=== PATIENT | female | born 1965 | race Caucasian/White ===

== ENCOUNTER 2022-12-06 22:15 | Observation (INO) | payer OTHER ==
[2022-12-06] MEDS ORDERED: Pepcid 20 MG VIAL IV ONE ×2 (22:33→23:02)
[2022-12-06] MEDS ORDERED: Zofran 4 MG/2 ML VIAL IV ONE ×2 (22:33→23:01)
[2022-12-06] MEDS ORDERED: PROTONIX 40 MG IV IV ONE ×2 (22:33→23:02)
--- NOTE | 2022-12-06 22:33 | ERPHSYRPT ---
- History of Present Illness Time Seen by Provider: 12/06/22 22:32 Historian: patient, family Exam Limitations: no limitations Physician History: pt was having cardiac work up when Covid hit and never got to complete this. Now having chest pain and came to hospital. some nausea. no vomiting. left sided chest pain - no known cardiac conditions yet. Independent HX from pt and family. nonsmoker, no hx blood clots . no cardiac procedures. Chest clear, Ht reg without M. EKG poor r wave progression. Ordered EKG, Trops, D dimer, abd labs, CBC , CXR, and CMP , reviewed and discussed with pt and family to guide follow-up. Timing/Duration: today Activities at Onset: none Location: substernal Chest Pain Radiation: arm Severity of Pain-Max: moderate Severity of Pain-Current: moderate Modifying Factors: Improves With: nothing Associated Symptoms: nausea, heartburn Nitro Today/Relief: 0.4 mg x 1, provided by ED, complete relief (but returned) Aspirin Treatment Today: 325 mg x 1, provided at home Allergies/Adverse Reactions: Sulfa (Sulfonamide Antibiotics) Allergy (Mild, Verified 12/06/22 22:17) Hives Home Medications: Bisoprolol/Hydrochlorothiazide [Bisoprolol-Hctz 10-6.25 mg Tab] 1 tab PO DAILY 12/06/22 [History] - Review of Systems Constitutional: No Fever, No Chills Eyes: No Symptoms Ears, Nose, & Throat: No Symptoms Respiratory: No Cough, No Dyspnea Cardiac: Chest Pain, No Edema, No Syncope Abdominal/Gastrointestinal: Nausea, No Abdominal Pain, No Vomiting, No Diarrhea Genitourinary Symptoms: No Dysuria Musculoskeletal: No Back Pain, No Neck Pain Skin: No Rash Neurological: No Dizziness, No Focal Weakness, No Sensory Changes Psychological: No Symptoms Endocrine: No Symptoms Hematologic/Lymphatic: No Symptoms Immunological/Allergic: No Symptoms All Other Systems: Reviewed and Negative - Past Medical History Pertinent Past Medical History: Yes Cardiac History: Hypertension Respiratory History: No Pertinent History Endocrine Medical History: No Pertinent History Musculoskeletal History: Arthritis - Nursing Vital Signs Nursing Vital Signs: Initial Vital Signs Temperature 98.1 F 12/06/22 22:18 Pulse Rate 71 12/06/22 22:18 Respiratory Rate 18 12/06/22 22:18 Blood Pressure 138/115 12/06/22 22:18 O2 Sat by Pulse Oximetry 99 12/06/22 22:18 Pain Scale Pain Intensity 3 - Physical Exam General Appearance: no apparent distress, alert Eye Exam: PERRL/EOMI, eyes nml inspection Ears, Nose, Throat Exam: normal ENT inspection, moist mucous membranes Neck Exam: normal inspection, non-tender, supple, full range of motion Respiratory Exam: normal breath sounds, lungs clear, No respiratory distress Cardiovascular Exam: regular rate/rhythm, normal heart sounds Gastrointestinal/Abdomen Exam: soft, No tenderness, No mass Pelvic Exam: deferred Rectal Exam: deferred Back Exam: normal inspection, No CVA tenderness, No vertebral tenderness Extremity Exam: normal inspection, normal range of motion Neurologic Exam: alert, oriented x 3, cooperative, normal mood/affect, sensation nml, No motor deficits Skin Exam: normal color, warm, dry SpO2 Interpretation: normal SpO2: 99 O2 Delivery: Room Air - Course Nursing assessment & vital signs reviewed: Yes EKG Interpreted by Me: Sinus Rhythm, NORMAL AXIS, NORMAL INTERVALS, Non-specific ST Changes, Other (poor r wave progression) - Radiology Exams Chest X-ray Interpretation: Reviewed by me, No Infiltrates, Other (granulomas no major infiltrates. ) Ordered Tests: Active Orders 24 hr Category Date Time Status EKG-ER Only STAT Care 12/06/22 22:33 Active IV Insertion STAT Care 12/06/22 22:33 Active Telemetry q4h Care 12/07/22 00:57 Active CHEST 1 VIEW (PORTABLE) Stat Exams 12/06/22 22:34 Taken AMYLASE Stat Lab 12/06/22 22:43 Completed CBC W DIFF Stat Lab 12/06/22 22:43 Completed CMP Stat Lab 12/06/22 22:43 Completed CULTURE,URINE Stat Lab 12/07/22 00:19 Received D-DIMER QUANTITATIVE Stat Lab 12/06/22 22:43 Completed HCG QUALITATIVE,SERUM Stat Lab 12/06/22 22:43 Completed LIPASE Stat Lab 12/06/22 22:43 Completed Lactic Acid Stat Lab 12/06/22 22:50 Completed TROPONIN Q4H Lab 12/06/22 22:43 Completed TROPONIN Q4H Lab 12/07/22 02:45 Ordered TROPONIN Q4H Lab 12/07/22 06:45 Ordered UA W/RFX UR CULTURE Stat Lab 12/07/22 00:19 Completed Medication Summary Generic Name Dose Route Start Last Admin Trade Name Freq PRN Reason Stop Dose Admin Sodium Chloride 1,000 mls @ 100 mls/hr 12/06/22 22:45 12/06/22 22:41 Sodium Chloride 0.9% 1000 Ml IV 01/05/23 22:44 100 mls/hr .Q10H JOVANY Administration Potassium Chloride 20 meq in 100 mls @ 50 mls/hr 12/07/22 00:57 12/07/22 01:02 Potassium Chloride 20 Meq In Water 100ml IV 12/07/22 02:56 50 mls/hr STAT ONE Administration Discontinued Medications Generic Name Dose Route Start Last Admin Trade Name Liana PRN Reason Stop Dose Admin Famotidine 20 mg 12/06/22 22:33 12/06/22 23:04 Famotidine 20 Mg/1 Vial IV 12/06/22 22:34 20 mg STAT ONE Administration Famotidine Confirm 12/06/22 23:02 Famotidine 20 Mg/1 Vial Administered 12/06/22 23:03 Dose 20 mg IV .STK-MED ONE Potassium Chloride Confirm 12/07/22 01:02 Potassium Chloride 20 Meq In Water 100ml Administered 12/07/22 01:03 Dose 100 mls @ ud IV .STK-MED ONE Nitroglycerin Confirm 12/06/22 23:10 Nitroglycerin 0.4 Mg (Ed) 0.4 Mg Tab.Subl Administered 12/06/22 23:11 Dose 0.4 mg SL .STK-MED ONE Nitroglycerin 0.4 mg 12/06/22 23:12 12/06/22 23:16 Nitroglycerin 0.4 Mg (Ed) 0.4 Mg Tab.Subl SL 12/06/22 23:13 0.4 mg STAT ONE Administration Ondansetron HCl 4 mg 12/06/22 22:33 12/06/22 22:42 Ondansetron Hcl 4 Mg/2 Ml Vial IV 12/06/22 22:34 4 mg STAT ONE Administration Ondansetron HCl Confirm 12/06/22 22:39 Ondansetron Hcl 4 Mg/2 Ml Vial Administered 12/06/22 22:40 Dose 4 mg .ROUTE .STK-MED ONE Ondansetron HCl 4 mg 12/06/22 23:01 12/06/22 23:04 Ondansetron Hcl 4 Mg/2 Ml Vial IV 12/06/22 23:02 4 mg STAT ONE Administration Ondansetron HCl Confirm 12/06/22 23:02 Ondansetron Hcl 4 Mg/2 Ml Vial Administered 12/06/22 23:03 Dose 4 mg .ROUTE .STK-MED ONE Pantoprazole Sodium 40 mg 12/06/22 22:33 12/06/22 23:04 Pantoprazole 40 Mg Vial IV 12/06/22 22:34 40 mg STAT ONE Administration Pantoprazole Sodium Confirm 12/06/22 23:02 Pantoprazole 40 Mg Vial Administered 12/06/22 23:03 Dose 40 mg IV .STK-MED ONE Potassium Bicarbonate 25 meq 12/07/22 00:56 12/07/22 01:02 Potassium Bicarbonate 25 Meq Tab PO 12/07/22 00:57 25 meq STAT ONE Administration Potassium Bicarbonate Confirm 12/07/22 01:01 Potassium Bicarbonate 25 Meq Tab Administered 12/07/22 01:02 Dose 25 meq .ROUTE .STK-MED ONE Lab/Rad Data: Laboratory Result Diagrams 12/06/22 22:43 12/06/22 22:43 Laboratory Results 12/07/22 12/06/22 12/06/22 Range/Units 00:19 22:50 22:43 WBC (4.0-10.5) x10^3/uL RBC (4.1-5.4) x10^6/uL Hgb (12.0-16.0) g/dL Hct (35-47) % MCV (78-100) fL MCH (26-32) pg MCHC (32-36) g/dL RDW (11.5-14.0) % Plt Count (150-450) x10^3/uL MPV (7.5-11.0) fL Gran % (36.0-66.0) % Immature Gran % (Auto) (0.00-0.4) % Nucleat RBC Rel Count (0.00-0.1) % Eos # (Auto) (0-0.5) x10^3/uL Immature Gran # (Auto) (0.00-0.03) x10^3u/L Absolute Lymphs (auto) (1.0-4.6) x10^3/uL Absolute Monos (auto) (0.0-1.3) x10^3/uL Absolute Nucleated RBC (0.00-0.01) x10^3u/L Lymphocytes % (24.0-44.0) % Monocytes % (0.0-12.0) % Eosinophils % (0.00-5.0) % Basophils % (0.0-0.4) % Absolute Granulocytes (1.4-6.9) x10^3/uL Basophils # (0-0.4) x10^3/uL D-Dimer < 0.19 (0.0-0.50) mg/L Sodium (137-145) mmol/L Potassium (3.5-5.1) mmol/L Chloride (98-107) mmol/L Carbon Dioxide (22-30) mmol/L Anion Gap (5-15) MEQ/L BUN (7-17) mg/dL Creatinine (0.52-1.04) mg/dL Estimated GFR ML/MIN Glucose (74-106) mg/dL Lactic Acid 1.5 (0.4-2.0) Calcium (8.4-10.2) mg/dL Total Bilirubin (0.2-1.3) mg/dL AST (14-36) U/L ALT (0-35) U/L Alkaline Phosphatase (38-126) U/L Troponin I (0.000-0.034) ng/mL Serum Total Protein (6.3-8.2) g/dL Albumin (3.5-5.0) g/dL Amylase (30-110) U/L Lipase (23-300) U/L Serum , Qual (Negative) Urine Color Yellow (Yellow) Urine Appearance Clear (Clear) Urine pH 7.0 (4.6-8.0) Ur Specific [place] <=1.005 (1.005-1.030) Urine Protein Negative (Negative) Urine Glucose (UA) Negative (Negative) mg/dL Urine Ketones Negative (Negative) Urine Blood Negative (Negative) Urine Nitrite Negative (Negative) Urine Bilirubin Negative (Negative) Urine Urobilinogen 0.2 (0.2) mg/dL Ur Leukocyte Esterase Moderate A (Negative) U Hyaline Cast (Auto) NONE SEEN (0-2) /LPF Urine Microscopic RBC 0-2 (0-5) /HPF Urine Microscopic WBC 11-20 A (0-5) /HPF Ur Epithelial Cells None Seen (None Seen) /HPF Urine Bacteria None Seen (None Seen) /HPF Urine Culture Reflexed YES (NO) 12/06/22 12/06/22 12/06/22 Range/Units 22:43 22:43 22:43 WBC (4.0-10.5) x10^3/uL RBC (4.1-5.4) x10^6/uL Hgb (12.0-16.0) g/dL Hct (35-47) % MCV (78-100) fL MCH (26-32) pg MCHC (32-36) g/dL RDW (11.5-14.0) % Plt Count (150-450) x10^3/uL MPV (7.5-11.0) fL Gran % (36.0-66.0) % Immature Gran % (Auto) (0.00-0.4) % Nucleat RBC Rel Count (0.00-0.1) % Eos # (Auto) (0-0.5) x10^3/uL Immature Gran # (Auto) (0.00-0.03) x10^3u/L Absolute Lymphs (auto) (1.0-4.6) x10^3/uL Absolute Monos (auto) (0.0-1.3) x10^3/uL Absolute Nucleated RBC (0.00-0.01) x10^3u/L Lymphocytes % (24.0-44.0) % Monocytes % (0.0-12.0) % Eosinophils % (0.00-5.0) % Basophils % (0.0-0.4) % Absolute Granulocytes (1.4-6.9) x10^3/uL Basophils # (0-0.4) x10^3/uL D-Dimer (0.0-0.50) mg/L Sodium 138 (137-145) mmol/L Potassium 3.2 L (3.5-5.1) mmol/L Chloride 103 (98-107) mmol/L Carbon Dioxide 29 (22-30) mmol/L Anion Gap 8.8 (5-15) MEQ/L BUN 10 (7-17) mg/dL Creatinine 0.77 (0.52-1.04) mg/dL Estimated GFR > 60.0 ML/MIN Glucose 93 (74-106) mg/dL Lactic Acid (0.4-2.0) Calcium 9.5 (8.4-10.2) mg/dL Total Bilirubin 0.50 (0.2-1.3) mg/dL AST 35 (14-36) U/L ALT 34 (0-35) U/L Alkaline Phosphatase 87 (38-126) U/L Troponin I < 0.012 (0.000-0.034) ng/mL Serum Total Protein 7.2 (6.3-8.2) g/dL Albumin 4.4 (3.5-5.0) g/dL Amylase 105 (30-110) U/L Lipase 117 (23-300) U/L Serum , Qual NEGATIVE (Negative) Urine Color (Yellow) Urine Appearance (Clear) Urine pH (4.6-8.0) Ur Specific [place] (1.005-1.030) Urine Protein (Negative) Urine Glucose (UA) (Negative) mg/dL Urine Ketones (Negative) Urine Blood (Negative) Urine Nitrite (Negative) Urine Bilirubin (Negative) Urine Urobilinogen (0.2) mg/dL Ur Leukocyte Esterase (Negative) U Hyaline Cast (Auto) (0-2) /LPF Urine Microscopic RBC (0-5) /HPF Urine Microscopic WBC (0-5) /HPF Ur Epithelial Cells (None Seen) /HPF Urine Bacteria (None Seen) /HPF Urine Culture Reflexed (NO) 12/06/22 Range/Units 22:43 WBC 5.6 (4.0-10.5) x10^3/uL RBC 4.31 (4.1-5.4) x10^6/uL Hgb 13.1 (12.0-16.0) g/dL Hct 39.6 (35-47) % MCV 91.9 (78-100) fL MCH 30.4 (26-32) pg MCHC 33.1 (32-36) g/dL RDW 12.6 (11.5-14.0) % Plt Count 188 (150-450) x10^3/uL MPV 11.3 H (7.5-11.0) fL Gran % 50.4 (36.0-66.0) % Immature Gran % (Auto) 0.2 (0.00-0.4) % Nucleat RBC Rel Count 0.0 (0.00-0.1) % Eos # (Auto) 0.07 (0-0.5) x10^3/uL Immature Gran # (Auto) 0.01 (0.00-0.03) x10^3u/L Absolute Lymphs (auto) 2.26 (1.0-4.6) x10^3/uL Absolute Monos (auto) 0.43 (0.0-1.3) x10^3/uL Absolute Nucleated RBC 0.00 (0.00-0.01) x10^3u/L Lymphocytes % 40.1 (24.0-44.0) % Monocytes % 7.6 (0.0-12.0) % Eosinophils % 1.2 (0.00-5.0) % Basophils % 0.5 (0.0-0.4) % Absolute Granulocytes 2.83 (1.4-6.9) x10^3/uL Basophils # 0.03 (0-0.4) x10^3/uL D-Dimer (0.0-0.50) mg/L Sodium (137-145) mmol/L Potassium (3.5-5.1) mmol/L Chloride (98-107) mmol/L Carbon Dioxide (22-30) mmol/L Anion Gap (5-15) MEQ/L BUN (7-17) mg/dL Creatinine (0.52-1.04) mg/dL Estimated GFR ML/MIN Glucose (74-106) mg/dL Lactic Acid (0.4-2.0) Calcium (8.4-10.2) mg/dL Total Bilirubin (0.2-1.3) mg/dL AST (14-36) U/L ALT (0-35) U/L Alkaline Phosphatase (38-126) U/L Troponin I (0.000-0.034) ng/mL Serum Total Protein (6.3-8.2) g/dL Albumin (3.5-5.0) g/dL Amylase (30-110) U/L Lipase (23-300) U/L Serum , Qual (Negative) Urine Color (Yellow) Urine Appearance (Clear) Urine pH (4.6-8.0) Ur Specific [place] (1.005-1.030) Urine Protein (Negative) Urine Glucose (UA) (Negative) mg/dL Urine Ketones (Negative) Urine Blood (Negative) Urine Nitrite (Negative) Urine Bilirubin (Negative) Urine Urobilinogen (0.2) mg/dL Ur Leukocyte Esterase (Negative) U Hyaline Cast (Auto) (0-2) /LPF Urine Microscopic RBC (0-5) /HPF Urine Microscopic WBC (0-5) /HPF Ur Epithelial Cells (None Seen) /HPF Urine Bacteria (None Seen) /HPF Urine Culture Reflexed (NO) - Progress Progress: improved, re-examined Air Movement: good Progress Note: 12/07/22 01:02 correcting hypokalemia. 12/07/22 01:39 calculated Heart score was 1 for age, 1 for moderately suspicious CP, one for EKG with slight abn, and one for risk factor of hptn = 4 medium risk. DIscussed with pt qand consulted Dr. Madrid and all agree best to place in obs and do serial trops. 12/07/22 02:29 Blood Culture(s) Obtained: No Antibiotics given: No Discussed with : Wilberto Will see patient in: hospital (observation) Counseled pt/family regarding: lab results, diagnosis, need for follow-up, rad results - Departure Departure Disposition: Observation Clinical Impression: Chest pain Condition: Good Critical Care Time: No Referrals: JOVAN INGRAM NP [Primary Care Provider] - Follow up/PCP as directed
[2022-12-06] MEDS ORDERED: Sodium Chloride 0.9% 1000 ML 1,000 ML ONE (22:39)
[2022-12-06] MEDS ORDERED: Zofran 4 MG/2 ML VIAL ONE ×2 (22:39→23:02)
[2022-12-06] MEDS ORDERED: Sodium Chloride 0.9% 1000 ML 1,000 ML IV SCH (22:45)
[2022-12-06 22:47] LABS: Absolute Neutrophil Ct (ANC) 2.83 x10^3/uL (1.4-6.9); Basophil (Absolute #) 0.03 x10^3/uL (0-0.4); Eosinophil % 1.2 % (0.00-5.0); Eosinophil (Absolute #) 0.07 x10^3/uL (0-0.5); Hematocrit 39.6 % (35-47); Hemoglobin 13.1 g/dL (12.0-16.0); Lymphocyte (Absolute #) 2.26 x10^3/uL (1.0-4.6); Lymphocytes % 40.1 % (24.0-44.0); Mean Cell Volume 91.9 fL (78-100); Mean Corpuscular Hemoglobin 30.4 pg (26-32); Mean Corpuscular Hgb Concent. 33.1 g/dL (32-36); Mean Platelet Volume 11.3 fL (7.5-11.0); Monocyte (Absolute #) 0.43 x10^3/uL (0.0-1.3); Monocytes % 7.6 % (0.0-12.0); Neutrophil % 50.4 % (36.0-66.0); Platelet Count 188 x10^3/uL (150-450); Red Blood Count 4.31 x10^6/uL (4.1-5.4); Red Cell Distribution Width 12.6 % (11.5-14.0); White Blood Count 5.6 x10^3/uL (4.0-10.5)
[2022-12-06 22:56] LABS: ALBUMIN 4.4 g/dL (3.5-5.0); ALKALINE PHOSPHATASE 87 U/L (38-126); AMYLASE 105 U/L (30-110); ANION GAP 8.8 MEQ/L (5-15); BLOOD UREA NITROGEN 10 mg/dL (7-17); CHLORIDE 103 mmol/L (98-107); Calcium 9.5 mg/dL (8.4-10.2); Carbon Dioxide 29 mmol/L (22-30); Creatinine 1 0.77 mg/dL (0.52-1.04); EST GLOMERULAR FILTRATION RATE > 60.0 ML/MIN; Glucose 93 mg/dL (74-106); LIPASE 117 U/L (23-300); Potassium 3.2 mmol/L (3.5-5.1); SGOT/AST 35 U/L (14-36); SGPT/ALT 34 U/L (0-35); SODIUM 138 mmol/L (137-145); Total Protein 7.2 g/dL (6.3-8.2)
[2022-12-06] MEDS ORDERED: Nitrostat 0.4 MG (ED) SL ONE ×2 (23:10→23:12)
[2022-12-07] MEDS ORDERED: K-LYTE PO ONE (00:56)
[2022-12-07] MEDS ORDERED: POTASSIUM CHLORIDE 20 mEq IN WATER 100ML 20 MEQ/100 ML BAG IV ONE (00:57)
[2022-12-07] MEDS ORDERED: K-LYTE ONE (01:01)
[2022-12-07] MEDS ORDERED: POTASSIUM CHLORIDE 20 mEq IN WATER 100ML 100 ML IV ONE (01:02)
[2022-12-07 01:15] LABS: Appearance Clear (Clear); Bacteria None Seen /HPF (None Seen); Bilirubin Negative (Negative); Blood Negative (Negative); Epithelial Cells None Seen /HPF (None Seen); Glucose, Urine Negative (Negative); Hyaline Casts NONE SEEN /LPF (0-2); Ketones Negative (Negative); Leukocyte Esterase Moderate (Negative); Nitrite Negative (Negative); Protein,Urine Dip Negative (Negative); RBC 0-2 /HPF (0-5); Specific Gravity <=1.005 (1.005-1.030); Urobilinogen 0.2 mg/dL (0.2)
[2022-12-07 01:18] LABS: ADD URINE CULTURE? YES (NO)
[2022-12-07 03:52] LABS: INFLUENZA A NEGATIVE (NEGATIVE); INFLUENZA B NEGATIVE (NEGATIVE); RESPIRATORY SYNCTIAL VIRUS NEGATIVE (Negative); SARS-CoV-2 Xpert Express NEGATIVE (NEGATIVE)
[2022-12-07] MEDS ORDERED: MORPHINE SULFATE 4 MG INJ IV ONE (04:02)
[2022-12-07] MEDS ORDERED: BENADRYL 50 MG/ML IV ONE (04:03)
[2022-12-07] MEDS ORDERED: Ativan 1 MG PO ONE (04:03)
[2022-12-07] MEDS ORDERED: Ativan 1 MG ONE (04:11)
[2022-12-07] MEDS ORDERED: MORPHINE SULFATE 4 MG INJ ONE (04:11)
[2022-12-07] MEDS ORDERED: BENADRYL 50 MG/ML ONE (04:11)
[2022-12-07] MEDS ORDERED: MILK OF MAGNESIA 30 ML PO PRN (04:44)
[2022-12-07] MEDS ORDERED: HUMULIN R SQ PRN (04:44)
[2022-12-07] MEDS ORDERED: Senokot-S Tablet PO PRN (04:44)
[2022-12-07] MEDS ORDERED: Zofran 4 MG/2 ML VIAL IV PRN (04:44)
[2022-12-07] MEDS ORDERED: TYLENOL 325 MG PO PRN (04:44)
[2022-12-07] MEDS ORDERED: Ntg 0.2MG/Ml in D5W GLASS*** 250 ML IV PRN (04:44)
[2022-12-07] MEDS ORDERED: MAALOX ES 30 ML UNIT DOSE PO PRN (04:44)
--- NOTE | 2022-12-07 08:42 | XRAY ---
Indication: Chest pain. Comparison: July 19, 2021 Portable apical lordotic chest again demonstrates normal heart, lungs, and bony thorax with incidental tiny right base calcified granuloma.
[2022-12-07] MEDS ORDERED: Ecotrin 325 MG PO SCH (10:00)
[2022-12-07] MEDS ORDERED: Pepcid 20 MG VIAL IV SCH (10:00)
[2022-12-07] MEDS ORDERED: MEDICATION INTERVENTION MC SCH (11:15)
[2022-12-07 14:19] LABS: ANION GAP 7.5 MEQ/L (5-15); BLOOD UREA NITROGEN 9 mg/dL (7-17); CHLORIDE 110 mmol/L (98-107); Carbon Dioxide 24 mmol/L (22-30); Creatinine 1 0.81 mg/dL (0.52-1.04); EST GLOMERULAR FILTRATION RATE > 60.0 ML/MIN; Glucose 85 mg/dL (74-106); Potassium 3.6 mmol/L (3.5-5.1); SODIUM 139 mmol/L (137-145); T4 (Thyroxine) 9.86 ug/dL (5.53-10.96); Vitamin B12 306 pg/mL (239-931)
[2022-12-07 16:31] VITALS: BP 120/66; PULSE 51; O2SAT 95
--- NOTE | 2022-12-07 18:11 | PCM.DCORD ---
- Discharge Prescriptions: New Metoprolol Tartrate 25 mg [Lopressor 25MG Tab] 12.5 mg PO Q12H #30 tab Continue Estrogens,Conjugated [Premarin] 0.625 mg PO DAILY Discontinued Bisoprolol/Hydrochlorothiazide [Bisoprolol-Hctz 10-6.25 mg Tab] 1 tab PO DAILY Follow up with: SATISH WINSTON [CONSULTING PHYSICIAN] - 12/21/22 2:45 pm (with Joshua/[employer] with ) SEBASTIAN SMITH MD [ACTIVE STAFF] - 12/14/22 10:45 am (AT [place] )
--- NOTE | 2022-12-07 18:33 | PCM.SSS ---
History of Present Illness - Chief Complaint Chief Complaint: Chest Pain History of Present Illness: is a 57 year old female patient of Dr Smith who presented to ER with chest pain/pressure. Patient also sees Dr Winston,Outside Sales Professional for tachycardia and has been taking Bisoprolol/HCTZ for this. States she was to have a Heart cath but did not because "covid epidemic" did not allow elective proceedure. CHEST PAIN- Chest pain resolved overnight and serial troponins were not elevate d. HYPOKALEMIA -Potassium was low in ER and treated ,recheck is normal. HYPOTHYROID-TSH abnormal consistent with mild hypothyroid.-follow with Dr Smith for Tx. UTI - await cult report - Dr Smith to follow. Patient will follow with Dr Winston for further cardiac work up. Bisoprolol/HCTZ was discontinued and Metoprolol tartrate 25mg take 1/2 tab BID Rx was given. RTW in 2 days on 12/09/22 - Review of Systems Constitutional: Fatigue Eyes: No Symptoms Ears, Nose, & Throat: No Symptoms Respiratory: No Symptoms Cardiac: Chest Pain, Palpitations Abdominal/Gastrointestinal: No Symptoms Genitourinary Symptoms: No Symptoms Musculoskeletal: No Symptoms Skin: No Symptoms Neurological: Dizziness Psychological: No Symptoms Endocrine: No Symptoms Hematologic/Lymphatic: No Symptoms Medications & Allergies Home Medications: Home Medication List Estrogens,Conjugated [Premarin] 0.625 mg PO DAILY 12/07/22 [History Confirmed 12/07/22] Metoprolol Tartrate 25 mg [Lopressor 25MG Tab] 12.5 mg PO Q12H #30 tab 12/07/22 [Rx] Allergies/Adverse Reactions: Allergies Allergy/AdvReac Type Severity Reaction Status Date / Time Sulfa (Sulfonamide Allergy Mild Hives Verified 12/06/22 22:17 Antibiotics) - Past Medical History Past Medical History: Yes Neurological History: Migraines ENT History: No Pertinent History Cardiac History: Hypertension Respiratory History: No Pertinent History Endocrine Medical History: No Pertinent History Musculoskelatal History: Osteoarthritis GI Medical History: Gallbladder Disease, Polyps History: No Pertinent History Pyscho-Social History: No Pertinent History Reproductive Disorders: Other - Female History Are you now?: No - Past Surgical History Past Surgical History: Yes Neuro Surgical History: No Pertinent History Cardiac History: No Pertinent History Respiratory Surgery: No Pertinent History GI Surgical History: No Pertinent History Genitourinary Surgical Hx: No Pertinent History Musculskeletal Surgical Hx: Joint Replacement Female Surgical History: Hysterectomy Other Surgical History: right total knee replacement, Hysterectomy - Social History Smoking Status: Former smoker Exposure to second hand smoke: No Alcohol: Rarely Drug Use: none - Physical Exam Vital Signs: Vital Signs - 24 hr Temp Pulse Pulse Resp BP Pulse Ox 12/07/22 16:00 97.5 F 51 L 17 120/66 95 12/07/22 11:27 97.3 F 58 L 17 118/65 93 L 12/07/22 07:06 97.7 F 64 16 102/62 95 12/07/22 05:25 57 L 18 98 12/07/22 04:43 97.3 F 51 L 18 128/63 98 12/07/22 04:10 57 L 14 117/68 97 12/07/22 03:20 60 18 119/68 97 12/07/22 02:30 99 12/07/22 02:08 63 18 120/89 97 12/07/22 01:13 59 L 18 102/63 98 12/07/22 00:16 64 18 107/74 96 12/06/22 23:28 62 16 107/80 99 12/06/22 22:18 98.1 F 71 70 18 138/115 99 General Appearance: no apparent distress Neurologic Exam: alert, oriented x 3, cooperative, manager orange II-XII nml as tested, normal mood/affect, nml cerebellar function, nml station & gait Eye Exam: eyes nml inspection Ears, Nose, Throat Exam: normal ENT inspection Neck Exam: normal inspection Respiratory Exam: normal breath sounds Results - Labs Lab/Micro Results: Lab Results-Last 24 Hours 12/06/22 12/06/22 12/06/22 Range/Units 22:43 22:43 22:43 WBC 5.6 (4.0-10.5) x10^3/uL RBC 4.31 (4.1-5.4) x10^6/uL Hgb 13.1 (12.0-16.0) g/dL Hct 39.6 (35-47) % MCV 91.9 (78-100) fL MCH 30.4 (26-32) pg MCHC 33.1 (32-36) g/dL RDW 12.6 (11.5-14.0) % Plt Count 188 (150-450) x10^3/uL MPV 11.3 H (7.5-11.0) fL Gran % 50.4 (36.0-66.0) % Immature Gran % (Auto) 0.2 (0.00-0.4) % Nucleat RBC Rel Count 0.0 (0.00-0.1) % Eos # (Auto) 0.07 (0-0.5) x10^3/uL Immature Gran # (Auto) 0.01 (0.00-0.03) x10^3u/L Absolute Lymphs (auto) 2.26 (1.0-4.6) x10^3/uL Absolute Monos (auto) 0.43 (0.0-1.3) x10^3/uL Absolute Nucleated RBC 0.00 (0.00-0.01) x10^3u/L Lymphocytes % 40.1 (24.0-44.0) % Monocytes % 7.6 (0.0-12.0) % Eosinophils % 1.2 (0.00-5.0) % Basophils % 0.5 (0.0-0.4) % Absolute Granulocytes 2.83 (1.4-6.9) x10^3/uL Basophils # 0.03 (0-0.4) x10^3/uL D-Dimer (0.0-0.50) mg/L Sodium 138 (137-145) mmol/L Potassium 3.2 L (3.5-5.1) mmol/L Chloride 103 (98-107) mmol/L Carbon Dioxide 29 (22-30) mmol/L Anion Gap 8.8 (5-15) MEQ/L BUN 10 (7-17) mg/dL Creatinine 0.77 (0.52-1.04) mg/dL Estimated GFR > 60.0 ML/MIN Glucose 93 (74-106) mg/dL Lactic Acid (0.4-2.0) Calcium 9.5 (8.4-10.2) mg/dL Total Bilirubin 0.50 (0.2-1.3) mg/dL AST 35 (14-36) U/L ALT 34 (0-35) U/L Alkaline Phosphatase 87 (38-126) U/L Troponin I < 0.012 (0.000-0.034) ng/mL Serum Total Protein 7.2 (6.3-8.2) g/dL Albumin 4.4 (3.5-5.0) g/dL Amylase 105 (30-110) U/L Lipase 117 (23-300) U/L Vitamin B12 (239-931) pg/mL Thyroxine (T4) (5.53-10.96) ug/dL TSH 3rd Generation (0.47-4.68) mIU/L Serum , Qual (Negative) Urine Color (Yellow) Urine Appearance (Clear) Urine pH (4.6-8.0) Ur Specific [place] (1.005-1.030) Urine Protein (Negative) Urine Glucose (UA) (Negative) mg/dL Urine Ketones (Negative) Urine Blood (Negative) Urine Nitrite (Negative) Urine Bilirubin (Negative) Urine Urobilinogen (0.2) mg/dL Ur Leukocyte Esterase (Negative) U Hyaline Cast (Auto) (0-2) /LPF Urine Microscopic RBC (0-5) /HPF Urine Microscopic WBC (0-5) /HPF Ur Epithelial Cells (None Seen) /HPF Urine Bacteria (None Seen) /HPF Urine Culture Reflexed (NO) Influenza Type A Ag (NEGATIVE) Influenza Type B Ag (NEGATIVE) RSV (PCR) (Negative) SARS-CoV-2 (PCR) (NEGATIVE) 12/06/22 12/06/22 12/06/22 Range/Units 22:43 22:43 22:50 WBC (4.0-10.5) x10^3/uL RBC (4.1-5.4) x10^6/uL Hgb (12.0-16.0) g/dL Hct (35-47) % MCV (78-100) fL MCH (26-32) pg MCHC (32-36) g/dL RDW (11.5-14.0) % Plt Count (150-450) x10^3/uL MPV (7.5-11.0) fL Gran % (36.0-66.0) % Immature Gran % (Auto) (0.00-0.4) % Nucleat RBC Rel Count (0.00-0.1) % Eos # (Auto) (0-0.5) x10^3/uL Immature Gran # (Auto) (0.00-0.03) x10^3u/L Absolute Lymphs (auto) (1.0-4.6) x10^3/uL Absolute Monos (auto) (0.0-1.3) x10^3/uL Absolute Nucleated RBC (0.00-0.01) x10^3u/L Lymphocytes % (24.0-44.0) % Monocytes % (0.0-12.0) % Eosinophils % (0.00-5.0) % Basophils % (0.0-0.4) % Absolute Granulocytes (1.4-6.9) x10^3/uL Basophils # (0-0.4) x10^3/uL D-Dimer < 0.19 (0.0-0.50) mg/L Sodium (137-145) mmol/L Potassium (3.5-5.1) mmol/L Chloride (98-107) mmol/L Carbon Dioxide (22-30) mmol/L Anion Gap (5-15) MEQ/L BUN (7-17) mg/dL Creatinine (0.52-1.04) mg/dL Estimated GFR ML/MIN Glucose (74-106) mg/dL Lactic Acid 1.5 (0.4-2.0) Calcium (8.4-10.2) mg/dL Total Bilirubin (0.2-1.3) mg/dL AST (14-36) U/L ALT (0-35) U/L Alkaline Phosphatase (38-126) U/L Troponin I (0.000-0.034) ng/mL Serum Total Protein (6.3-8.2) g/dL Albumin (3.5-5.0) g/dL Amylase (30-110) U/L Lipase (23-300) U/L Vitamin B12 (239-931) pg/mL Thyroxine (T4) (5.53-10.96) ug/dL TSH 3rd Generation (0.47-4.68) mIU/L Serum , Qual NEGATIVE (Negative) Urine Color (Yellow) Urine Appearance (Clear) Urine pH (4.6-8.0) Ur Specific [place] (1.005-1.030) Urine Protein (Negative) Urine Glucose (UA) (Negative) mg/dL Urine Ketones (Negative) Urine Blood (Negative) Urine Nitrite (Negative) Urine Bilirubin (Negative) Urine Urobilinogen (0.2) mg/dL Ur Leukocyte Esterase (Negative) U Hyaline Cast (Auto) (0-2) /LPF Urine Microscopic RBC (0-5) /HPF Urine Microscopic WBC (0-5) /HPF Ur Epithelial Cells (None Seen) /HPF Urine Bacteria (None Seen) /HPF Urine Culture Reflexed (NO) Influenza Type A Ag (NEGATIVE) Influenza Type B Ag (NEGATIVE) RSV (PCR) (Negative) SARS-CoV-2 (PCR) (NEGATIVE) 12/07/22 12/07/22 12/07/22 Range/Units 00:19 03:09 03:09 WBC (4.0-10.5) x10^3/uL RBC (4.1-5.4) x10^6/uL Hgb (12.0-16.0) g/dL Hct (35-47) % MCV (78-100) fL MCH (26-32) pg MCHC (32-36) g/dL RDW (11.5-14.0) % Plt Count (150-450) x10^3/uL MPV (7.5-11.0) fL Gran % (36.0-66.0) % Immature Gran % (Auto) (0.00-0.4) % Nucleat RBC Rel Count (0.00-0.1) % Eos # (Auto) (0-0.5) x10^3/uL Immature Gran # (Auto) (0.00-0.03) x10^3u/L Absolute Lymphs (auto) (1.0-4.6) x10^3/uL Absolute Monos (auto) (0.0-1.3) x10^3/uL Absolute Nucleated RBC (0.00-0.01) x10^3u/L Lymphocytes % (24.0-44.0) % Monocytes % (0.0-12.0) % Eosinophils % (0.00-5.0) % Basophils % (0.0-0.4) % Absolute Granulocytes (1.4-6.9) x10^3/uL Basophils # (0-0.4) x10^3/uL D-Dimer (0.0-0.50) mg/L Sodium (137-145) mmol/L Potassium (3.5-5.1) mmol/L Chloride (98-107) mmol/L Carbon Dioxide (22-30) mmol/L Anion Gap (5-15) MEQ/L BUN (7-17) mg/dL Creatinine (0.52-1.04) mg/dL Estimated GFR ML/MIN Glucose (74-106) mg/dL Lactic Acid (0.4-2.0) Calcium (8.4-10.2) mg/dL Total Bilirubin (0.2-1.3) mg/dL AST (14-36) U/L ALT (0-35) U/L Alkaline Phosphatase (38-126) U/L Troponin I < 0.012 (0.000-0.034) ng/mL Serum Total Protein (6.3-8.2) g/dL Albumin (3.5-5.0) g/dL Amylase (30-110) U/L Lipase (23-300) U/L Vitamin B12 (239-931) pg/mL Thyroxine (T4) (5.53-10.96) ug/dL TSH 3rd Generation (0.47-4.68) mIU/L Serum , Qual (Negative) Urine Color Yellow (Yellow) Urine Appearance Clear (Clear) Urine pH 7.0 (4.6-8.0) Ur Specific [place] <=1.005 (1.005-1.030) Urine Protein Negative (Negative) Urine Glucose (UA) Negative (Negative) mg/dL Urine Ketones Negative (Negative) Urine Blood Negative (Negative) Urine Nitrite Negative (Negative) Urine Bilirubin Negative (Negative) Urine Urobilinogen 0.2 (0.2) mg/dL Ur Leukocyte Esterase Moderate A (Negative) U Hyaline Cast (Auto) NONE SEEN (0-2) /LPF Urine Microscopic RBC 0-2 (0-5) /HPF Urine Microscopic WBC 11-20 A (0-5) /HPF Ur Epithelial Cells None Seen (None Seen) /HPF Urine Bacteria None Seen (None Seen) /HPF Urine Culture Reflexed YES (NO) Influenza Type A Ag NEGATIVE (NEGATIVE) Influenza Type B Ag NEGATIVE (NEGATIVE) RSV (PCR) NEGATIVE (Negative) SARS-CoV-2 (PCR) NEGATIVE (NEGATIVE) 12/07/22 12/07/22 Range/Units 06:10 06:10 WBC (4.0-10.5) x10^3/uL RBC (4.1-5.4) x10^6/uL Hgb (12.0-16.0) g/dL Hct (35-47) % MCV (78-100) fL MCH (26-32) pg MCHC (32-36) g/dL RDW (11.5-14.0) % Plt Count (150-450) x10^3/uL MPV (7.5-11.0) fL Gran % (36.0-66.0) % Immature Gran % (Auto) (0.00-0.4) % Nucleat RBC Rel Count (0.00-0.1) % Eos # (Auto) (0-0.5) x10^3/uL Immature Gran # (Auto) (0.00-0.03) x10^3u/L Absolute Lymphs (auto) (1.0-4.6) x10^3/uL Absolute Monos (auto) (0.0-1.3) x10^3/uL Absolute Nucleated RBC (0.00-0.01) x10^3u/L Lymphocytes % (24.0-44.0) % Monocytes % (0.0-12.0) % Eosinophils % (0.00-5.0) % Basophils % (0.0-0.4) % Absolute Granulocytes (1.4-6.9) x10^3/uL Basophils # (0-0.4) x10^3/uL D-Dimer (0.0-0.50) mg/L Sodium 139 (137-145) mmol/L Potassium 3.6 (3.5-5.1) mmol/L Chloride 110 H (98-107) mmol/L Carbon Dioxide 24 (22-30) mmol/L Anion Gap 7.5 (5-15) MEQ/L BUN 9 (7-17) mg/dL Creatinine 0.81 (0.52-1.04) mg/dL Estimated GFR > 60.0 ML/MIN Glucose 85 (74-106) mg/dL Lactic Acid (0.4-2.0) Calcium 9.0 (8.4-10.2) mg/dL Total Bilirubin (0.2-1.3) mg/dL AST (14-36) U/L ALT (0-35) U/L Alkaline Phosphatase (38-126) U/L Troponin I < 0.012 (0.000-0.034) ng/mL Serum Total Protein (6.3-8.2) g/dL Albumin (3.5-5.0) g/dL Amylase (30-110) U/L Lipase (23-300) U/L Vitamin B12 306 (239-931) pg/mL Thyroxine (T4) 9.86 (5.53-10.96) ug/dL TSH 3rd Generation 4.720 H (0.47-4.68) mIU/L Serum , Qual (Negative) Urine Color (Yellow) Urine Appearance (Clear) Urine pH (4.6-8.0) Ur Specific [place] (1.005-1.030) Urine Protein (Negative) Urine Glucose (UA) (Negative) mg/dL Urine Ketones (Negative) Urine Blood (Negative) Urine Nitrite (Negative) Urine Bilirubin (Negative) Urine Urobilinogen (0.2) mg/dL Ur Leukocyte Esterase (Negative) U Hyaline Cast (Auto) (0-2) /LPF Urine Microscopic RBC (0-5) /HPF Urine Microscopic WBC (0-5) /HPF Ur Epithelial Cells (None Seen) /HPF Urine Bacteria (None Seen) /HPF Urine Culture Reflexed (NO) Influenza Type A Ag (NEGATIVE) Influenza Type B Ag (NEGATIVE) RSV (PCR) (Negative) SARS-CoV-2 (PCR) (NEGATIVE) - Radiology Impressions Radiology Exams & Impressions: Radiology Procedures Category Date Time Status CHEST 1 VIEW (PORTABLE) Stat Exams 12/06/22 22:34 Completed - Other Procedures and Tests Respiratory Therapy 12/07/22 05:00 EKG DAILY 12/08/22 05:00 EKG DAILY 12/09/22 05:00 EKG DAILY 12/10/22 05:00 EKG DAILY Assessment/Plan (1) Chest pain Current Visit: Yes Status: Resolved Assessment & Plan: follow with Dr Winston Code(s): R07.9 - CHEST PAIN, UNSPECIFIED (2) UTI (urinary tract infection) Current Visit: Yes Status: Suspected Assessment & Plan: await cult - Dr Smith will receive results Code(s): N39.0 - URINARY TRACT INFECTION, SITE NOT SPECIFIED (3) Hypokalemia Current Visit: Yes Status: Resolved Assessment & Plan: stopped HCTZ Code(s): E87.6 - HYPOKALEMIA (4) Hypothyroid Current Visit: Yes Status: Acute Assessment & Plan: Dr Smith to address and treat Code(s): E03.9 - HYPOTHYROIDISM, UNSPECIFIED Hospital Summary - Hospital Course Hospital Course: see full discussion and plan in HPI - Vitals & Intake/Output Vital Signs: Vital Signs Temperature 97.5 F 12/07/22 16:00 Pulse Rate 51 L 12/07/22 16:00 Respiratory Rate 17 12/07/22 16:00 Blood Pressure 120/66 12/07/22 16:00 O2 Sat by Pulse Oximetry 95 12/07/22 16:00 Intake & Output: Intake & Output 12/05/22 12/06/22 12/07/22 12/08/22 11:59 11:59 11:59 11:59 Intake Total 240 480 Balance 240 480 Weight 70.942 kg - Lab Result Diagrams: 12/06/22 22:43 12/07/22 06:10 Lab Results-Last 24 Hrs: Lab Results-Last 24 Hours 12/06/22 12/06/22 12/06/22 Range/Units 22:43 22:43 22:43 WBC 5.6 (4.0-10.5) x10^3/uL RBC 4.31 (4.1-5.4) x10^6/uL Hgb 13.1 (12.0-16.0) g/dL Hct 39.6 (35-47) % MCV 91.9 (78-100) fL MCH 30.4 (26-32) pg MCHC 33.1 (32-36) g/dL RDW 12.6 (11.5-14.0) % Plt Count 188 (150-450) x10^3/uL MPV 11.3 H (7.5-11.0) fL Gran % 50.4 (36.0-66.0) % Immature Gran % (Auto) 0.2 (0.00-0.4) % Nucleat RBC Rel Count 0.0 (0.00-0.1) % Eos # (Auto) 0.07 (0-0.5) x10^3/uL Immature Gran # (Auto) 0.01 (0.00-0.03) x10^3u/L Absolute Lymphs (auto) 2.26 (1.0-4.6) x10^3/uL Absolute Monos (auto) 0.43 (0.0-1.3) x10^3/uL Absolute Nucleated RBC 0.00 (0.00-0.01) x10^3u/L Lymphocytes % 40.1 (24.0-44.0) % Monocytes % 7.6 (0.0-12.0) % Eosinophils % 1.2 (0.00-5.0) % Basophils % 0.5 (0.0-0.4) % Absolute Granulocytes 2.83 (1.4-6.9) x10^3/uL Basophils # 0.03 (0-0.4) x10^3/uL D-Dimer (0.0-0.50) mg/L Sodium 138 (137-145) mmol/L Potassium 3.2 L (3.5-5.1) mmol/L Chloride 103 (98-107) mmol/L Carbon Dioxide 29 (22-30) mmol/L Anion Gap 8.8 (5-15) MEQ/L BUN 10 (7-17) mg/dL Creatinine 0.77 (0.52-1.04) mg/dL Estimated GFR > 60.0 ML/MIN Glucose 93 (74-106) mg/dL Lactic Acid (0.4-2.0) Calcium 9.5 (8.4-10.2) mg/dL Total Bilirubin 0.50 (0.2-1.3) mg/dL AST 35 (14-36) U/L ALT 34 (0-35) U/L Alkaline Phosphatase 87 (38-126) U/L Troponin I < 0.012 (0.000-0.034) ng/mL Serum Total Protein 7.2 (6.3-8.2) g/dL Albumin 4.4 (3.5-5.0) g/dL Amylase 105 (30-110) U/L Lipase 117 (23-300) U/L Vitamin B12 (239-931) pg/mL Thyroxine (T4) (5.53-10.96) ug/dL TSH 3rd Generation (0.47-4.68) mIU/L Serum , Qual (Negative) Urine Color (Yellow) Urine Appearance (Clear) Urine pH (4.6-8.0) Ur Specific [place] (1.005-1.030) Urine Protein (Negative) Urine Glucose (UA) (Negative) mg/dL Urine Ketones (Negative) Urine Blood (Negative) Urine Nitrite (Negative) Urine Bilirubin (Negative) Urine Urobilinogen (0.2) mg/dL Ur Leukocyte Esterase (Negative) U Hyaline Cast (Auto) (0-2) /LPF Urine Microscopic RBC (0-5) /HPF Urine Microscopic WBC (0-5) /HPF Ur Epithelial Cells (None Seen) /HPF Urine Bacteria (None Seen) /HPF Urine Culture Reflexed (NO) Influenza Type A Ag (NEGATIVE) Influenza Type B Ag (NEGATIVE) RSV (PCR) (Negative) SARS-CoV-2 (PCR) (NEGATIVE) 12/06/22 12/06/22 12/06/22 Range/Units 22:43 22:43 22:50 WBC (4.0-10.5) x10^3/uL RBC (4.1-5.4) x10^6/uL Hgb (12.0-16.0) g/dL Hct (35-47) % MCV (78-100) fL MCH (26-32) pg MCHC (32-36) g/dL RDW (11.5-14.0) % Plt Count (150-450) x10^3/uL MPV (7.5-11.0) fL Gran % (36.0-66.0) % Immature Gran % (Auto) (0.00-0.4) % Nucleat RBC Rel Count (0.00-0.1) % Eos # (Auto) (0-0.5) x10^3/uL Immature Gran # (Auto) (0.00-0.03) x10^3u/L Absolute Lymphs (auto) (1.0-4.6) x10^3/uL Absolute Monos (auto) (0.0-1.3) x10^3/uL Absolute Nucleated RBC (0.00-0.01) x10^3u/L Lymphocytes % (24.0-44.0) % Monocytes % (0.0-12.0) % Eosinophils % (0.00-5.0) % Basophils % (0.0-0.4) % Absolute Granulocytes (1.4-6.9) x10^3/uL Basophils # (0-0.4) x10^3/uL D-Dimer < 0.19 (0.0-0.50) mg/L Sodium (137-145) mmol/L Potassium (3.5-5.1) mmol/L Chloride (98-107) mmol/L Carbon Dioxide (22-30) mmol/L Anion Gap (5-15) MEQ/L BUN (7-17) mg/dL Creatinine (0.52-1.04) mg/dL Estimated GFR ML/MIN Glucose (74-106) mg/dL Lactic Acid 1.5 (0.4-2.0) Calcium (8.4-10.2) mg/dL Total Bilirubin (0.2-1.3) mg/dL AST (14-36) U/L ALT (0-35) U/L Alkaline Phosphatase (38-126) U/L Troponin I (0.000-0.034) ng/mL Serum Total Protein (6.3-8.2) g/dL Albumin (3.5-5.0) g/dL Amylase (30-110) U/L Lipase (23-300) U/L Vitamin B12 (239-931) pg/mL Thyroxine (T4) (5.53-10.96) ug/dL TSH 3rd Generation (0.47-4.68) mIU/L Serum , Qual NEGATIVE (Negative) Urine Color (Yellow) Urine Appearance (Clear) Urine pH (4.6-8.0) Ur Specific [place] (1.005-1.030) Urine Protein (Negative) Urine Glucose (UA) (Negative) mg/dL Urine Ketones (Negative) Urine Blood (Negative) Urine Nitrite (Negative) Urine Bilirubin (Negative) Urine Urobilinogen (0.2) mg/dL Ur Leukocyte Esterase (Negative) U Hyaline Cast (Auto) (0-2) /LPF Urine Microscopic RBC (0-5) /HPF Urine Microscopic WBC (0-5) /HPF Ur Epithelial Cells (None Seen) /HPF Urine Bacteria (None Seen) /HPF Urine Culture Reflexed (NO) Influenza Type A Ag (NEGATIVE) Influenza Type B Ag (NEGATIVE) RSV (PCR) (Negative) SARS-CoV-2 (PCR) (NEGATIVE) 12/07/22 12/07/22 12/07/22 Range/Units 00:19 03:09 03:09 WBC (4.0-10.5) x10^3/uL RBC (4.1-5.4) x10^6/uL Hgb (12.0-16.0) g/dL Hct (35-47) % MCV (78-100) fL MCH (26-32) pg MCHC (32-36) g/dL RDW (11.5-14.0) % Plt Count (150-450) x10^3/uL MPV (7.5-11.0) fL Gran % (36.0-66.0) % Immature Gran % (Auto) (0.00-0.4) % Nucleat RBC Rel Count (0.00-0.1) % Eos # (Auto) (0-0.5) x10^3/uL Immature Gran # (Auto) (0.00-0.03) x10^3u/L Absolute Lymphs (auto) (1.0-4.6) x10^3/uL Absolute Monos (auto) (0.0-1.3) x10^3/uL Absolute Nucleated RBC (0.00-0.01) x10^3u/L Lymphocytes % (24.0-44.0) % Monocytes % (0.0-12.0) % Eosinophils % (0.00-5.0) % Basophils % (0.0-0.4) % Absolute Granulocytes (1.4-6.9) x10^3/uL Basophils # (0-0.4) x10^3/uL D-Dimer (0.0-0.50) mg/L Sodium (137-145) mmol/L Potassium (3.5-5.1) mmol/L Chloride (98-107) mmol/L Carbon Dioxide (22-30) mmol/L Anion Gap (5-15) MEQ/L BUN (7-17) mg/dL Creatinine (0.52-1.04) mg/dL Estimated GFR ML/MIN Glucose (74-106) mg/dL Lactic Acid (0.4-2.0) Calcium (8.4-10.2) mg/dL Total Bilirubin (0.2-1.3) mg/dL AST (14-36) U/L ALT (0-35) U/L Alkaline Phosphatase (38-126) U/L Troponin I < 0.012 (0.000-0.034) ng/mL Serum Total Protein (6.3-8.2) g/dL Albumin (3.5-5.0) g/dL Amylase (30-110) U/L Lipase (23-300) U/L Vitamin B12 (239-931) pg/mL Thyroxine (T4) (5.53-10.96) ug/dL TSH 3rd Generation (0.47-4.68) mIU/L Serum , Qual (Negative) Urine Color Yellow (Yellow) Urine Appearance Clear (Clear) Urine pH 7.0 (4.6-8.0) Ur Specific [place] <=1.005 (1.005-1.030) Urine Protein Negative (Negative) Urine Glucose (UA) Negative (Negative) mg/dL Urine Ketones Negative (Negative) Urine Blood Negative (Negative) Urine Nitrite Negative (Negative) Urine Bilirubin Negative (Negative) Urine Urobilinogen 0.2 (0.2) mg/dL Ur Leukocyte Esterase Moderate A (Negative) U Hyaline Cast (Auto) NONE SEEN (0-2) /LPF Urine Microscopic RBC 0-2 (0-5) /HPF Urine Microscopic WBC 11-20 A (0-5) /HPF Ur Epithelial Cells None Seen (None Seen) /HPF Urine Bacteria None Seen (None Seen) /HPF Urine Culture Reflexed YES (NO) Influenza Type A Ag NEGATIVE (NEGATIVE) Influenza Type B Ag NEGATIVE (NEGATIVE) RSV (PCR) NEGATIVE (Negative) SARS-CoV-2 (PCR) NEGATIVE (NEGATIVE) 12/07/22 12/07/22 Range/Units 06:10 06:10 WBC (4.0-10.5) x10^3/uL RBC (4.1-5.4) x10^6/uL Hgb (12.0-16.0) g/dL Hct (35-47) % MCV (78-100) fL MCH (26-32) pg MCHC (32-36) g/dL RDW (11.5-14.0) % Plt Count (150-450) x10^3/uL MPV (7.5-11.0) fL Gran % (36.0-66.0) % Immature Gran % (Auto) (0.00-0.4) % Nucleat RBC Rel Count (0.00-0.1) % Eos # (Auto) (0-0.5) x10^3/uL Immature Gran # (Auto) (0.00-0.03) x10^3u/L Absolute Lymphs (auto) (1.0-4.6) x10^3/uL Absolute Monos (auto) (0.0-1.3) x10^3/uL Absolute Nucleated RBC (0.00-0.01) x10^3u/L Lymphocytes % (24.0-44.0) % Monocytes % (0.0-12.0) % Eosinophils % (0.00-5.0) % Basophils % (0.0-0.4) % Absolute Granulocytes (1.4-6.9) x10^3/uL Basophils # (0-0.4) x10^3/uL D-Dimer (0.0-0.50) mg/L Sodium 139 (137-145) mmol/L Potassium 3.6 (3.5-5.1) mmol/L Chloride 110 H (98-107) mmol/L Carbon Dioxide 24 (22-30) mmol/L Anion Gap 7.5 (5-15) MEQ/L BUN 9 (7-17) mg/dL Creatinine 0.81 (0.52-1.04) mg/dL Estimated GFR > 60.0 ML/MIN Glucose 85 (74-106) mg/dL Lactic Acid (0.4-2.0) Calcium 9.0 (8.4-10.2) mg/dL Total Bilirubin (0.2-1.3) mg/dL AST (14-36) U/L ALT (0-35) U/L Alkaline Phosphatase (38-126) U/L Troponin I < 0.012 (0.000-0.034) ng/mL Serum Total Protein (6.3-8.2) g/dL Albumin (3.5-5.0) g/dL Amylase (30-110) U/L Lipase (23-300) U/L Vitamin B12 306 (239-931) pg/mL Thyroxine (T4) 9.86 (5.53-10.96) ug/dL TSH 3rd Generation 4.720 H (0.47-4.68) mIU/L Serum , Qual (Negative) Urine Color (Yellow) Urine Appearance (Clear) Urine pH (4.6-8.0) Ur Specific [place] (1.005-1.030) Urine Protein (Negative) Urine Glucose (UA) (Negative) mg/dL Urine Ketones (Negative) Urine Blood (Negative) Urine Nitrite (Negative) Urine Bilirubin (Negative) Urine Urobilinogen (0.2) mg/dL Ur Leukocyte Esterase (Negative) U Hyaline Cast (Auto) (0-2) /LPF Urine Microscopic RBC (0-5) /HPF Urine Microscopic WBC (0-5) /HPF Ur Epithelial Cells (None Seen) /HPF Urine Bacteria (None Seen) /HPF Urine Culture Reflexed (NO) Influenza Type A Ag (NEGATIVE) Influenza Type B Ag (NEGATIVE) RSV (PCR) (Negative) SARS-CoV-2 (PCR) (NEGATIVE) - Radiology Exams Ordered Rad Exams-Entire Visit: Radiology Procedures Category Date Time Status CHEST 1 VIEW (PORTABLE) Stat Exams 12/06/22 22:34 Completed - Procedures and Test Procedures and Tests throughout Hospitalization: Therapy Orders & Screens 12/07/22 04:44 EKG [id number],QAMX3,PRN Comment: Respiratory Therapy Consult ONCE Comment: Reason For Exam: 12/07/22 05:00 EKG DAILY Comment: 12/08/22 05:00 EKG DAILY Comment: 12/09/22 05:00 EKG DAILY Comment: 12/10/22 05:00 EKG DAILY Comment: - Discharge Disposition: Home, Self-Care Condition: Stable Prescriptions: New Metoprolol Tartrate 25 mg [Lopressor 25MG Tab] 12.5 mg PO Q12H #30 tab Continue Estrogens,Conjugated [Premarin] 0.625 mg PO DAILY Discontinued Bisoprolol/Hydrochlorothiazide [Bisoprolol-Hctz 10-6.25 mg Tab] 1 tab PO DAILY Follow up with: SATISH WINSTON [CONSULTING PHYSICIAN] - 12/21/22 2:45 pm (with Joshua/THIRD MATE with ) SEBASTIAN SMITH MD [ACTIVE STAFF] - 12/14/22 10:45 am (AT [facility] )
[2022-12-08] MEDS ORDERED: NON-FORMULARY ITEM (Bisoprolol/Hydrochlorothiazide [Bisoprolol-Hctz 10-6.25 Mg Tab] 1 EACH PO SCH (10:00)
== END 2022-12-07 18:49 | disposition home or self-care (01) ==
LOC: ED 22:15 → MED SURG 12-07 04:39
PROVIDERS: ADMIT Family Medicine; ATTEND Family Medicine
DX: R07.9 Chest pain, unspecified (principal); N39.0 Urinary tract infection, site not specified; E87.6 Hypokalemia; E03.9 Hypothyroidism, unspecified; R00.0 Tachycardia, unspecified; Z79.899 Other long term (current) drug therapy; Z20.828 Contact with and (suspected) exposure to other viral communicable diseases
CPT/HCPCS: 0241U; 36000; 36415; 71045; 80048; 80053; 81001; 82150; 82607; 83605; 83690; 84436; 84443; 84484; 84703; 85025; 85379; 87086; 93005; 93268; 94762; 96365; 96374; 96375; 96376; 99285; J1200; J2270; J2405; J3480; A9270-GY; G0378